=== PATIENT | female | born 1995 | race Two or more races ===

== ENCOUNTER 2019-07-21 14:50 | Emergency (ER) | payer OTHER ==
[2019-07-21 14:54] VITALS: BP 127/64; PULSE 83; TEMP 98.6; BMI 22.3
--- NOTE | 2019-07-21 15:56 | PDOC ---
History of Present Illness - General Chief Complaint: Cold Symptoms Stated Complaint: COLD SYMPTOMS Time Seen by Provider: 07/21/19 15:27 - History of Present Illness Initial Comments: 07/21/19 15:53 24-year-old female without comorbidities presents for evaluation of cold-like symptoms and cough for 4 days. She had a fever on day 2 which has subsided. Past History - Past Medical History Allergies/Adverse Reactions: Allergies Allergy/AdvReac Type Severity Reaction Status Date / Time No Known Allergies Allergy Verified 07/21/19 14:54 Home Medications: Ambulatory Orders Guaifenesin Dm [Mucinex Dm -] 1 tab PO BID #60 tab.er.[id number] 07/21/19 COPD: No - Psycho Social/Smoking Cessation Hx Smoking Status: No Smoking History: Never smoked Number of Cigarettes Smoked Daily: 0 Information on smoking cessation initiated: No Hx Alcohol Use: No Drug/Substance Use Hx: No Review of Systems - Review of Systems Constitutional: Yes: Fever Respiratory: Yes: Cough *Physical Exam - Vital Signs Last Vital Signs Temp Pulse Resp BP Pulse Ox 98.6 F 83 19 127/64 99 07/21/19 14:51 07/21/19 14:51 07/21/19 14:51 07/21/19 14:51 07/21/19 14:51 - Physical Exam Comments: 07/21/19 15:54 GENERAL: The patient is awake, alert, and fully oriented, in no acute distress. HEAD: Normal with no signs of trauma. EYES: sclera anicteric, conjunctiva clear. ENT: Ears normal NECK: Normal range of motion LUNGS: Breath sounds equal, clear to auscultation bilaterally. No wheezes, and no crackles. HEART: S1 and S2 without murmur, rub or gallop. ABDOMEN: Soft, nontender, normoactive bowel sounds. No guarding, no rebound. No masses. EXTREMITIES: Normal range of motion, no edema. No clubbing or cyanosis. No cords, erythema, or tenderness. NEUROLOGICAL: Cranial nerves II through XII grossly intact. Normal speech, normal gait. PSYCH: Normal mood, normal affect. SKIN: Warm, Dry, normal turgor, no rashes or lesions noted. Medical Decision Making - Medical Decision Making 07/21/19 15:54 Benign examination 4 days of symptoms most likely viral upper respiratory infection follow-up with PCP Discharge - Discharge Information Problems reviewed: Yes Clinical Impression/Diagnosis: Viral URI with cough Condition: Stable Disposition: HOME - Admission No - Follow up/Referral Referrals: Mariajose Quach MD [Staff Physician] - - Patient Discharge Instructions Patient Printed Discharge Instructions: DI for Viral Upper Respiratory Infection -- Adult Additional Instructions: Please take the Mucinex as directed. Do not take any NyQuil. Return to the emergency room for worsening symptoms. Without fail please follow-up with your primary care physician in 1 to 2 days for further evaluation and treatment options. - Post Discharge Activity Work/Back to School Note: Back to Work
== END 2019-07-21 16:26 | disposition home or self-care (01) ==
LOC: JERFT 14:50
DX: J06.9 Acute upper respiratory infection, unspecified (principal); R05 Cough
CPT/HCPCS: 99281-25